=== PATIENT | female | born 1995 ===

== ENCOUNTER 2019-12-14 08:20 | Inpatient (IN) | payer BC, OTHER ==
[2019-12-14] MEDS ORDERED: Misoprostol 200 MCG Tab PO PRN (08:28)
[2019-12-14] MEDS ORDERED: Terbutaline 1 MG/ML SDV SUBCUT PRN (08:28)
[2019-12-14] MEDS ORDERED: Ondansetron 4 MG/2 ML SDV IVPUSH PRN ×2 (08:28→21:03)
[2019-12-14] MEDS ORDERED: Methylergonovine 0.2 MG/1 ML Amp IM PRN (08:28)
[2019-12-14] MEDS ORDERED: Sodium Chloride 0.9% 2.5 ML Syringe FLUSH PRN (08:28)
[2019-12-14] MEDS ORDERED: Lidocaine 1% 50 ML MDV INJECT PRN (08:28)
[2019-12-14] MEDS ORDERED: Sodium Chloride 0.9% 10 ML Syringe FLUSH PRN (08:28)
[2019-12-14] MEDS ORDERED: Water For Irrigation,Sterile 1,000 ML Container IRR PRN (08:28)
[2019-12-14] MEDS ORDERED: Tranexamic Acid 1,000 MG in Sodium Chloride 0.9% 100 ML IV PRN (08:28)
[2019-12-14] MEDS ORDERED: Nalbuphine 10 MG/1 ML Vial IVPUSH PRN (08:28)
[2019-12-14] MEDS ORDERED: Sodium Chloride 0.9% 10 ML SDV IV PRN (08:28)
[2019-12-14] MEDS ORDERED: Carboprost Tromethamine 250 MCG/1 ML Amp IM PRN (08:28)
[2019-12-14] MEDS ORDERED: Lactated Ringers 1,000 ML IV SCH (08:30)
[2019-12-14] MEDS ORDERED: Oxytocin/0.9 % Sodium Chloride 30 UNIT/500 ML BAG IV SCH ×2 (08:30)
[2019-12-14] MEDS ORDERED: Misoprostol 25 MCG (1/4 of 100 MCG) Tab VAG PRN ×2 (09:00→13:00)
[2019-12-14] MEDS ORDERED: Misoprostol 25 MCG (1/4 of 100 MCG) Tab PO SCH (09:00)
--- NOTE | 2019-12-14 15:27 | PCM.LDHP ---
L&D History of Present Illness - General Date of Service: 12/14/19 Admit Problem/Dx: Patient Status Order with Admit Dx/Problem 12/14/19 08:28 Patient Status [ADT] Routine Admission Diagnosis/Problem Admission Diagnosis/Problem 12/14/19 15:23 24yo EDC 12/31/2019 37 4/7wks TWINS, A+, RI, GBS neg. 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: Social & Family History - Family History Family Medical History: Noncontributory Endocrine/Metabolic: Reports: Diabetes, type II H&P Review of Systems - Review of Systems: Review Of Systems: See Below General: Reports: No Symptoms HEENT: Reports: No Symptoms Pulmonary: Reports: No Symptoms Cardiovascular: Reports: No Symptoms Gastrointestinal: Reports: No Symptoms Genitourinary: Reports: No Symptoms Musculoskeletal: Reports: No Symptoms Skin: Reports: No Symptoms Psychiatric: Reports: No Symptoms Neurological: Reports: No Symptoms Hematologic/Lymphatic: Reports: No Symptoms Immunologic: Reports: No Symptoms L&D Exam - Exam Exam: See Below - Vital Signs Weight: 94.347 kg - OB Specific Contraction Intensity: Moderate to Strong Movement: Active Heart Tones: Present Heart Tones per Min: 130 Heart Rate (FHR) Variability: Moderate (6-25 bmp) Presentation: Vertex Estimated Weight: 3200 - Vargas Score Vargas Score Cervix Position: Anterior Vargas Score Consistency: Soft Vargas Score Effacement: 51-70% Vargas Score Dilation: 3-4 cm Vargas Score 's Station: -2 Vargas Score Total: 9 - Exam General: Alert, Oriented HEENT: Conjunctiva Clear, Hearing Intact Lungs: Normal Respiratory Effort GI/Abdominal Exam: Soft, Non-Tender Rectal Exam: Deferred Genitourinary: Normal external exam, Normal bimanual exam, Cervical dilitation. No: Cervical fluid, Vaginal bleeding Back Exam: Normal Inspection, Full Range of Motion Extremities: Normal Inspection, Normal Range of Motion, Non-Tender, No Pedal Edema Skin: Warm, Dry, Intact Neurological: Cranial Nerves Intact, Strength Equal Bilateral, Normal Gait, Normal Speech, Normal Tone, Sensation Intact Psychiatric: Alert, Normal Affect, Normal Mood - Patient Data Lab Results Last 24 hrs: Laboratory Results - last 24 hr 12/14/19 12/14/19 Range/Units 09:00 09:00 WBC 11.23 H (4.0-11.0) K/uL RBC 3.92 L (4.30-5.90) M/uL Hgb 9.8 L (12.0-16.0) g/dL Hct 31.3 L (36.0-46.0) % MCV 79.8 L (80.0-98.0) fL MCH 25.0 L (27.0-32.0) pg MCHC 31.3 (31.0-37.0) g/dL RDW Std Deviation 45.2 (28.0-62.0) fl RDW Coeff of Donte 16 H (11.0-15.0) % Plt Count 205 (150-400) K/uL MPV 10.40 (7.40-12.00) fL Nucleated RBC % 0.0 /100WBC Nucleated RBCs # 0 K/uL Blood Type A POSITIVE Antibody Screen NEGATIVE Result Diagrams: 12/14/19 09:00 - Problem List (1) Dichorionic diamniotic twin in third trimester SNOMED Code(s): 828916099 ICD Code: O30.043 - TWIN , DICHORIONIC/DIAMNIOTIC, THIRD TRIMESTER Status: Acute Priority: High Current Visit: Yes Problem List Initiated/Reviewed/Updated: Yes Orders Last 24hrs: Active Orders 24 hr Category Date Time Status Patient Status [ADT] Routine ADT 12/14/19 08:28 Active Bedrest Bathroom Privileges [RC] ASDIRECTED Care 12/14/19 08:28 Active Communication Order [RC] ASDIRECTED Care 12/14/19 08:28 Active Communication Order [RC] ASDIRECTED Care 12/14/19 08:28 Active Heart Tones [RC] CONTINUOUS Care 12/14/19 08:28 Active Non Stress Test [RC] PER UNIT ROUTINE Care 12/14/19 08:28 Active May Shower [RC] ASDIRECTED Care 12/14/19 08:28 Active Notify Provider [RC] PRN Care 12/14/19 08:28 Active Notify Provider [RC] PRN Care 12/14/19 08:28 Active Notify Provider [RC] STAT Care 12/14/19 08:28 Active Oxygen Therapy [RC] ASDIRECTED Care 12/14/19 08:28 Active Up ad Estephania [RC] ASDIRECTED Care 12/14/19 08:28 Active Vaginal Exam [RC] PRN Care 12/14/19 08:28 Active Vaginal Exam [RC] PRN Care 12/14/19 08:28 Active Vital Signs [RC] PER UNIT ROUTINE Care 12/14/19 08:28 Active Vital Signs [RC] PER UNIT ROUTINE Care 12/14/19 08:28 Active Regular Diet [DIET] Diet 12/14/19 Lunch Active RPR (SYPHILIS SERO) W/ RFLX [REF] Routine Lab 12/14/19 09:00 Received Carboprost Tromethamine [Hemabate DS] Med 12/14/19 08:28 Active 250 mcg IM ASDIRECTED PRN Lactated Ringers [Ringers, Lactated] 1,000 ml Med 12/14/19 08:30 Active IV ASDIRECTED Lidocaine 1% [Xylocaine 1%] Med 12/14/19 08:28 Active 50 ml INJECT ONETIME PRN Methylergonovine [Methergine] Med 12/14/19 08:28 Active 0.2 mg IM ASDIRECTED PRN Nalbuphine [Nubain] Med 12/14/19 08:28 Active 10 mg IVPUSH Q1H PRN Ondansetron [Zofran] Med 12/14/19 08:28 Active 4 mg IVPUSH Q4H PRN Oxytocin/0.9 % Sodium Chloride [Oxytocin 30 Unit/500 ML Med 12/14/19 08:30 Active -NS] 30 unit in 500 ml IV TITRATE Oxytocin/0.9 % Sodium Chloride [Oxytocin 30 Unit/500 ML Med 12/14/19 08:30 Active -NS] 30 unit in 500 ml IV TITRATE Sodium Chloride 0.9% [Normal Saline] Med 12/14/19 08:28 Active 10 ml IV ASDIRECTED PRN Sodium Chloride 0.9% [Saline Flush] Med 12/14/19 08:28 Active 10 ml FLUSH ASDIRECTED PRN Sodium Chloride 0.9% [Saline Flush] Med 12/14/19 08:28 Active 2.5 ml FLUSH ASDIRECTED PRN Terbutaline [Brethine] Med 12/14/19 08:28 Active 0.25 mg SUBCUT ASDIRECTED PRN Tranexamic Acid [Cyklokapron] 1,000 mg Med 12/14/19 08:28 Active Sodium Chloride 0.9% [Normal Saline] 100 ml IV ONETIME Water For Irrigation,Sterile [Sterile Water for Med 12/14/19 08:28 Active Irrigation] 1,000 ml IRR ASDIRECTED PRN miSOPROStoL [Cytotec] Med 12/14/19 08:28 Active 200 mcg PO ONETIME PRN miSOPROStoL [Cytotec] Med 12/14/19 09:00 Active 25 mcg PO Q4H miSOPROStoL [Cytotec] Med 12/14/19 09:00 Active 25 mcg VAG ONETIME PRN miSOPROStoL [Cytotec] Med 12/14/19 13:00 Active 25 mcg VAG Q4H PRN Scalp Electrode [WOMSER] Per Unit Routine Oth 12/14/19 08:28 Ordered Medication Administration Instruction [OM.PC] Q3H Oth 12/14/19 08:30 Ordered Peripheral IV Insertion Adult [OM.PC] Routine Oth 12/14/19 08:28 Ordered Resuscitation Status Routine Resus Stat 12/14/19 08:28 Ordered Medication Orders Carboprost Tromethamine (Hemabate Ds) 250 mcg IM ASDIRECTED PRN PRN Reason: Post Hemorrhage Lactated Ringer's (Ringers, Lactated) 1,000 mls @ 150 mls/hr IV ASDIRECTED KIANA Oxytocin/Sodium Chloride (Oxytocin 30 Unit/500 Ml-Ns) 30 unit in 500 mls @ 500 mls/hr IV TITRATE KIANA Oxytocin/Sodium Chloride (Oxytocin 30 Unit/500 Ml-Ns) 30 unit in 500 mls @ 2 mls/hr IV TITRATE KIANA; Protocol Tranexamic Acid 1,000 mg/ (Sodium Chloride) 110 mls @ 660 mls/hr IV ONETIME PRN PRN Reason: Bleeding Lidocaine HCl (Xylocaine 1%) 50 ml INJECT ONETIME PRN PRN Reason: Laceration repair Methylergonovine Maleate (Methergine) 0.2 mg IM ASDIRECTED PRN PRN Reason: Post Hemorrhage Misoprostol (Cytotec) 200 mcg PO ONETIME PRN PRN Reason: Post Hemorrhage Misoprostol (Cytotec) 25 mcg VAG ONETIME PRN PRN Reason: Cervical Ripening Last Admin: 12/14/19 09:15 Dose: 25 mcg Misoprostol (Cytotec) 25 mcg VAG Q4H PRN PRN Reason: Cervical Ripening Misoprostol (Cytotec) 25 mcg PO Q4H KIANA Last Admin: 12/14/19 09:15 Dose: 25 mcg Nalbuphine HCl (Nubain) 10 mg IVPUSH Q1H PRN PRN Reason: Pain (severe 7-10) Ondansetron HCl (Zofran) 4 mg IVPUSH Q4H PRN PRN Reason: Nausea/Vomiting Sodium Chloride (Saline Flush) 10 ml FLUSH ASDIRECTED PRN PRN Reason: Keep Vein Open Sodium Chloride (Saline Flush) 2.5 ml FLUSH ASDIRECTED PRN PRN Reason: Keep Vein Open Sodium Chloride (Normal Saline) 10 ml IV ASDIRECTED PRN PRN Reason: IV Use Sterile Water (Sterile Water For Irrigation) 1,000 ml IRR ASDIRECTED PRN PRN Reason: delivery Terbutaline Sulfate (Brethine) 0.25 mg SUBCUT ASDIRECTED PRN PRN Reason: Tacysystole Assessment/Plan Comment:: IOL TWINS A: 24yo EDC 12/31/2019 37 4/7wks TWINS, A+, RI, GBS neg. IOL for Twins P: Admit, cytotec to pitocin, epidural prn, anticipate , Dr Marte updated.
[2019-12-14] MEDS ORDERED: Ropivacaine HCl/PF 100 ML ONE (16:05)
[2019-12-14] MEDS ORDERED: fentaNYL 100 MCG/2 ML SDV ONE ×2 (16:05→19:37)
[2019-12-14] MEDS ORDERED: Ropivacaine 0.2% PF 2 MG/ML 20 ML SDV ONE (16:05)
[2019-12-14] MEDS ORDERED: ePHEDrine 50 MG/ML SDV ONE (17:00)
[2019-12-14] MEDS ORDERED: Sodium Chloride 0.9% 0 ML ONE (17:01)
--- NOTE | 2019-12-14 17:07 | PCM.PREANE ---
Preanesthetic Assessment - Procedure Proposed Procedure: MARISELA - Anesthesia/Transfusion/Family Hx Anesthesia History: Prior Anesthesia Without Reaction Family History of Anesthesia Reaction: No Transfusion History: No Prior Transfusion(s) Intubation History: Unknown - Review of Systems General: No Symptoms Pulmonary: No Symptoms Cardiovascular: No Symptoms Gastrointestinal: No Symptoms Neurological: No Symptoms - Physical Assessment NPO Status Date: 12/14/19 NPO Status Time: 16:00 (lIQUIDS) Height: 1.68 m Weight: 94.347 kg ASA Class: 2 Mental Status: Alert & Oriented x3 Airway Class: Mallampati = 2 Dentition: Reports: Normal Dentition Thyro-Mental Finger Breadths: 3 Mouth Opening Finger Breadths: 3 - Lab Values: Laboratory Last Values WBC 11.23 K/uL (4.0-11.0) H 12/14/19 09:00 RBC 3.92 M/uL (4.30-5.90) L 12/14/19 09:00 Hgb 9.8 g/dL (12.0-16.0) L 12/14/19 09:00 Hct 31.3 % (36.0-46.0) L 12/14/19 09:00 MCV 79.8 fL (80.0-98.0) L 12/14/19 09:00 MCH 25.0 pg (27.0-32.0) L 12/14/19 09:00 MCHC 31.3 g/dL (31.0-37.0) 12/14/19 09:00 RDW Std Deviation 45.2 fl (28.0-62.0) 12/14/19 09:00 RDW Coeff of Donte 16 % (11.0-15.0) H 12/14/19 09:00 Plt Count 205 K/uL (150-400) 12/14/19 09:00 MPV 10.40 fL (7.40-12.00) 12/14/19 09:00 Nucleated RBC % 0.0 /100WBC 12/14/19 09:00 Nucleated RBCs # 0 K/uL 12/14/19 09:00 Blood Type A POSITIVE 12/14/19 09:00 Antibody Screen NEGATIVE 12/14/19 09:00 - Allergies Allergies/Adverse Reactions: Allergies Allergy/AdvReac Type Severity Reaction Status Date / Time No Known Allergies Allergy Verified 12/14/19 08:28 - Blood Blood Available: No Product(s) Available: None - Anesthesia Plan Pre-Op Medication Ordered: None - Acknowledgements Anesthesia Type Planned: Epidural Pt an Appropriate Candidate for the Planned Anesthesia: Yes Alternatives and Risks of Anesthesia Discussed w Pt/Guardian: Yes Pt/Guardian Understands and Agrees with Anesthesia Plan: Yes Additional Comments: , 37+4 weeks. Twins. Previous epidural. Discussed, ? answered, permit signed. Acceptable candidate. 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 MEDS Home Medications: Home Meds Pnv No.95/Ferrous Fum/Folic AC [ Tablet] 1 tab PO DAILY 11/19/19 [ History] - CURRENT (IN HOUSE) MEDS Current Meds: Current Medications Carboprost Tromethamine (Hemabate Ds) 250 mcg IM ASDIRECTED PRN PRN Reason: Post Hemorrhage Lactated Ringer's (Ringers, Lactated) 1,000 mls @ 150 mls/hr IV ASDIRECTED KIANA Last Admin: 12/14/19 15:27 Dose: 999 mls/hr Oxytocin/Sodium Chloride (Oxytocin 30 Unit/500 Ml-Ns) 30 unit in 500 mls @ 500 mls/hr IV TITRATE KIANA Oxytocin/Sodium Chloride (Oxytocin 30 Unit/500 Ml-Ns) 30 unit in 500 mls @ 2 mls/hr IV TITRATE [facility]; Protocol Tranexamic Acid 1,000 mg/ (Sodium Chloride) 110 mls @ 660 mls/hr IV ONETIME PRN PRN Reason: Bleeding Lidocaine HCl (Xylocaine 1%) 50 ml INJECT ONETIME PRN PRN Reason: Laceration repair Methylergonovine Maleate (Methergine) 0.2 mg IM ASDIRECTED PRN PRN Reason: Post Hemorrhage Misoprostol (Cytotec) 200 mcg PO ONETIME PRN PRN Reason: Post Hemorrhage Misoprostol (Cytotec) 25 mcg VAG ONETIME PRN PRN Reason: Cervical Ripening Last Admin: 12/14/19 09:15 Dose: 25 mcg Misoprostol (Cytotec) 25 mcg VAG Q4H PRN PRN Reason: Cervical Ripening Misoprostol (Cytotec) 25 mcg PO Q4H KIANA Last Admin: 12/14/19 09:15 Dose: 25 mcg Nalbuphine HCl (Nubain) 10 mg IVPUSH Q1H PRN PRN Reason: Pain (severe 7-10) Ondansetron HCl (Zofran) 4 mg IVPUSH Q4H PRN PRN Reason: Nausea/Vomiting Sodium Chloride (Saline Flush) 10 ml FLUSH ASDIRECTED PRN PRN Reason: Keep Vein Open Sodium Chloride (Saline Flush) 2.5 ml FLUSH ASDIRECTED PRN PRN Reason: Keep Vein Open Sodium Chloride (Normal Saline) 10 ml IV ASDIRECTED PRN PRN Reason: IV Use Sterile Water (Sterile Water For Irrigation) 1,000 ml IRR ASDIRECTED PRN PRN Reason: delivery Terbutaline Sulfate (Brethine) 0.25 mg SUBCUT ASDIRECTED PRN PRN Reason: Tacysystole Discontinued Medications Ephedrine Sulfate (Ephedrine Sulfate) Confirm Administered Dose 100 mg .ROUTE .STK-MED ONE Stop: 12/14/19 17:01 Fentanyl (Sublimaze) Confirm Administered Dose 100 mcg .ROUTE .STK-MED ONE Stop: 12/14/19 16:06 Ropivacaine (Naropin 0.2%) Confirm Administered Dose 100 mls @ as directed .ROUTE .STK-MED ONE Stop: 12/14/19 16:06 Sodium Chloride (Normal Saline) Confirm Administered Dose 20 mls @ as directed .ROUTE .STK-MED ONE Stop: 12/14/19 17:02 Ropivacaine (Naropin 0.2%) Confirm Administered Dose 20 ml .ROUTE .STK-MED ONE Stop: 12/14/19 16:06
--- NOTE | 2019-12-14 17:16 | PCM.SN ---
- Free Text/Narrative Note: Epidural without issues. Prep with Chloroprep Space L3-4. Local 4ml 1% lidocaine. Space on 3rd pass with saline/air. Reconfirmed with 3ml saline. Catheter to 8cm without issues. Occlusive drsg. Test with 3ml 1.5% lido with 1:200K epi. TEST NEGATIVE. Bolus with 0.2% Naropin + Fentanyl 100mcg over 10 minutes. Pain post /10 from 05/05. VSS Infusion started 30 minutes post bolus. 8ml/hr with 4ml/q15 bolus option. Tolerated well. TeleHealth - TeleHealth Patient Service Facility: [facility]: [facility] Informed Consent: Telemedicine Audio/Visual Informed Consent: The risks, benefits, and alternatives to the telehealth visit were explained to the patient and the patient consented to this modality of care. The telehealth visit was carried out via a secure, web-based conferencing system. This telemedicine service was a real-time, two-way interactive video and communication between the patient and the provider. All the parties involved were identified and approved by the patient prior to the visit. Any physical exam was assisted by the patient. Unless noted otherwise, the provider was located at their usual clinic location , and the patient was at their place of residence. Patient identity was confirmed by having the patient state their name and date of . All communications with the patient (verbal, audiovisual, and written) were documented in the patients medical record per documentation standards.
[2019-12-14] MEDS ORDERED: Bupivacaine 0.5% 10 ML SDV ONE (19:37)
--- NOTE | 2019-12-14 20:11 | PCM.SN ---
- Free Text/Narrative Note: 19:38 Requested for increased pain. 5 ml Marcaine 0.5% + 100mcg fentanyl. Dilated 7-8cm. Active labor. Good relief for brief period. Dilated to complete. Increasing discomfort. Transferred to OR for delivery of twins. Anesthesia standby. 19:58-20:48. Tolerated procedure well. Viable girls. Epidural catheter pulled with tip intact. No issues post. TeleHealth - TeleHealth Patient Service Facility: [facility]: [facility] Informed Consent: Telemedicine Audio/Visual Informed Consent: The risks, benefits, and alternatives to the telehealth visit were explained to the patient and the patient consented to this modality of care. The telehealth visit was carried out via a secure, web-based conferencing system. This telemedicine service was a real-time, two-way interactive video and communication between the patient and the provider. All the parties involved were identified and approved by the patient prior to the visit. Any physical exam was assisted by the patient. Unless noted otherwise, the provider was located at their usual clinic location , and the patient was at their place of residence. Patient identity was confirmed by having the patient state their name and date of . All communications with the patient (verbal, audiovisual, and written) were documented in the patients medical record per documentation standards.
[2019-12-14] MEDS ORDERED: Benzocaine/Menthol 20%-0.5% Spray 78 GM Cannister TOP PRN (21:00)
[2019-12-14] MEDS ORDERED: Witch Hazel Medicated Pads 40/Jar TOP PRN (21:00)
[2019-12-14] MEDS ORDERED: Lanolin 100% Cream 7 GM Tube TOP PRN (21:00)
[2019-12-14] MEDS ORDERED: Bisacodyl 10 MG Supp RECTAL PRN (21:00)
[2019-12-14] MEDS ORDERED: Docusate Sodium 100 MG Cap PO PRN (21:00)
[2019-12-14] MEDS ORDERED: oxyCODONE 5 MG Tab PO PRN (21:00)
[2019-12-14] MEDS ORDERED: Acetaminophen 500 MG Tab PO PRN (21:00)
[2019-12-14] MEDS ORDERED: Ibuprofen 400 MG Tab PO PRN (21:00)
[2019-12-14] MEDS ORDERED: Ibuprofen 800 MG Tab ONE (21:12)
[2019-12-14] MEDS ORDERED: Acetaminophen 500 MG Tab ONE (21:12)
[2019-12-14] MEDS: Ibuprofen 800 MG Tab PO PRN (21:15)
[2019-12-14] MEDS: Acetaminophen 500 MG Tab PO PRN (21:15)
--- NOTE | 2019-12-14 21:19 | PCM48HPAN ---
Post Anesthesia Note - EVALUATION WITHIN 48HRS OF ANESTHETIC Vital Signs in Normal Range: Yes Patient Participated in Evaluation: Yes Respiratory Function Stable: Yes Airway Patent: Yes Cardiovascular Function Stable: Yes Hydration Status Stable: Yes Pain Control Satisfactory: Yes Nausea and Vomiting Control Satisfactory: Yes Mental Status Recovered: Yes - COMMENTS/OBSERVATIONS Free Text/Narrative:: Did well. No problems post.
--- NOTE | 2019-12-14 21:42 | PCM.DEL ---
L & D Note - General Info Date of Service: 12/14/19 Mother's Due Date: 12/31/19 - Delivery Note Labor: Augmented by ARM Cervical Ripening Method: Misoprostil Delivery Outcome: Livebirth Delivery Method: Spontaneous Vaginal Delivery-Single Infant Delivery Mode: Spontaneous Presentation: Vertex Nuchal Cord: None Anesthesia Type: Epidural Amniotic Fluid Description: Clear Episiotomy Type: None Laceration: None Placenta: Intact, Spontaneous Cord: 3 Vessels Estimated Blood Loss: 150 Resuscitation Needed: No Score 1 min: 8 Score 5 min: 9 Second Stage Interventions: Reports: Pushing, Pulls Own Legs Back Delivery Comments (Free Text/Narrative):: of twins. Baby A delivered with good pushing, Head delivered, shoulders and body followed easily. Very short cord, cord clamped and cut. Infant to mothers abd spont cry. RN at for support. APGARS 8/9, Wt: 5lb 12oz. Dr Marte ultrasound noted baby B cephalic presentation. SROM clear fluid, Baby delivered vacuum assisted due to FHT in the 60's. Infant delivered OP. Infant with spont cry. Cord clamped and cut. APGARS 7/9, Wt: 6lb 2oz. Cord blood collected. Pitocin to IVF. Inspection noted intact perineum. EBL 150cc. Stable. Induction Criteria - Vargas Score Vargas Score Dilation: 1-2 cm Vargas Score Effacement: 60-70% Vargas Score 's Station: -2 Vargas Score Consistency: Soft Vargas Score Cervix Position: Midposition Vargas Score Total: 7 Vargas Score Presenting Part: Reports: Cephalic - Induction Medical Indication: Twins Estimated Pelvis: Reports: Adequate Reassuring Monitoring Strip: Yes Absence of Tachy Systole: Yes - General Info Date of Service: 12/14/19 Admission Dx/Problem (Free Text): Patient Status Order with Admit Dx/Problem 12/14/19 08:28 Patient Status [ADT] Routine Admission Diagnosis/Problem Admission Diagnosis/Problem 12/14/19 15:23 24yo EDC 12/31/2019 37 4/7wks TWINS, A+, RI, GBS neg. IOL for Twins Functional Status: Reports: Pain Controlled - Review of Systems General: Reports: No Symptoms HEENT: Reports: No Symptoms Pulmonary: Reports: No Symptoms Cardiovascular: Reports: No Symptoms Gastrointestinal: Reports: No Symptoms Genitourinary: Reports: No Symptoms Musculoskeletal: Reports: No Symptoms Skin: Reports: No Symptoms Neurological: Reports: No Symptoms Psychiatric: Reports: No Symptoms - Patient Data Weight - Most Recent: 94.347 kg Lab Results Last 24 Hours: Laboratory Results - last 24 hr 12/14/19 12/14/19 Range/Units 09:00 09:00 WBC 11.23 H (4.0-11.0) K/uL RBC 3.92 L (4.30-5.90) M/uL Hgb 9.8 L (12.0-16.0) g/dL Hct 31.3 L (36.0-46.0) % MCV 79.8 L (80.0-98.0) fL MCH 25.0 L (27.0-32.0) pg MCHC 31.3 (31.0-37.0) g/dL RDW Std Deviation 45.2 (28.0-62.0) fl RDW Coeff of Donte 16 H (11.0-15.0) % Plt Count 205 (150-400) K/uL MPV 10.40 (7.40-12.00) fL Nucleated RBC % 0.0 /100WBC Nucleated RBCs # 0 K/uL Blood Type A POSITIVE Antibody Screen NEGATIVE Med Orders - Current: Current Medications Acetaminophen (Tylenol Extra Strength) 500 mg PO Q4H PRN PRN Reason: Pain Acetaminophen (Tylenol Extra Strength) 1,000 mg PO Q4H PRN PRN Reason: Pain Last Admin: 12/14/19 21:15 Dose: 1,000 mg Benzocaine/Menthol (Dermoplast Pain Relief 20%-0.5% [place]) 78 gm TOP ASDIRECTED PRN PRN Reason: Perineal Comfort Measure Bisacodyl (Dulcolax) 10 mg RECTAL ONETIME PRN PRN Reason: Constipation Carboprost Tromethamine (Hemabate Ds) 250 mcg IM ASDIRECTED PRN PRN Reason: Post Hemorrhage Docusate Sodium (Colace) 100 mg PO BID PRN PRN Reason: Constipation Emollient Ointment (Lansinoh Hpa) 0 gm TOP ASDIRECTED PRN PRN Reason: Sore Nipples Lactated Ringer's (Ringers, Lactated) 1,000 mls @ 150 mls/hr IV ASDIRECTED [facility] Last Infusion: 12/14/19 19:45 Dose: Infused Oxytocin/Sodium Chloride (Oxytocin 30 Unit/500 Ml-Ns) 30 unit in 500 mls @ 500 mls/hr IV TITRATE [facility] Last Admin: 12/14/19 21:17 Dose: 500 mls/hr Oxytocin/Sodium Chloride (Oxytocin 30 Unit/500 Ml-Ns) 30 unit in 500 mls @ 2 mls/hr IV TITRATE [facility]; Protocol Tranexamic Acid 1,000 mg/ (Sodium Chloride) 110 mls @ 660 mls/hr IV ONETIME PRN PRN Reason: Bleeding Ibuprofen (Motrin) 400 mg PO Q4H PRN PRN Reason: Pain Ibuprofen (Motrin) 800 mg PO Q6H PRN PRN Reason: Pain Last Admin: 12/14/19 21:15 Dose: 800 mg Lidocaine HCl (Xylocaine 1%) 50 ml INJECT ONETIME PRN PRN Reason: Laceration repair Methylergonovine Maleate (Methergine) 0.2 mg IM ASDIRECTED PRN PRN Reason: Post Hemorrhage Misoprostol (Cytotec) 200 mcg PO ONETIME PRN PRN Reason: Post Hemorrhage Misoprostol (Cytotec) 25 mcg VAG ONETIME PRN PRN Reason: Cervical Ripening Last Admin: 12/14/19 09:15 Dose: 25 mcg Misoprostol (Cytotec) 25 mcg VAG Q4H PRN PRN Reason: Cervical Ripening Misoprostol (Cytotec) 25 mcg PO Q4H [facility] Last Admin: 12/14/19 09:15 Dose: 25 mcg Nalbuphine HCl (Nubain) 10 mg IVPUSH Q1H PRN PRN Reason: Pain (severe 7-10) Ondansetron HCl (Zofran) 4 mg IVPUSH Q6H PRN PRN Reason: Nausea/Vomiting Oxycodone HCl (Oxycodone) 5 mg PO Q2H PRN PRN Reason: Pain Sodium Chloride (Saline Flush) 10 ml FLUSH ASDIRECTED PRN PRN Reason: Keep Vein Open Sodium Chloride (Saline Flush) 2.5 ml FLUSH ASDIRECTED PRN PRN Reason: Keep Vein Open Sodium Chloride (Normal Saline) 10 ml IV ASDIRECTED PRN PRN Reason: IV Use Sterile Water (Sterile Water For Irrigation) 1,000 ml IRR ASDIRECTED PRN PRN Reason: delivery Terbutaline Sulfate (Brethine) 0.25 mg SUBCUT ASDIRECTED PRN PRN Reason: Tacysystole Witch [place] (Tucks) 1 pad TOP ASDIRECTED PRN PRN Reason: comfort care Discontinued Medications Acetaminophen (Tylenol Extra Strength) Confirm Administered Dose 1,000 mg .ROUTE .STK-MED ONE Stop: 12/14/19 21:13 Bupivacaine HCl (Sensorcaine-Mpf 0.5%) Confirm Administered Dose 10 ml .ROUTE .STK-MED ONE Stop: 12/14/19 19:38 Ephedrine Sulfate (Ephedrine Sulfate) Confirm Administered Dose 100 mg .ROUTE .STK-MED ONE Stop: 12/14/19 17:01 Fentanyl (Sublimaze) Confirm Administered Dose 100 mcg .ROUTE .STK-MED ONE Stop: 12/14/19 16:06 Fentanyl (Sublimaze) Confirm Administered Dose 100 mcg .ROUTE .STK-MED ONE Stop: 12/14/19 19:38 Ropivacaine (Naropin 0.2%) Confirm Administered Dose 100 mls @ as directed .ROUTE .STK-MED ONE Stop: 12/14/19 16:06 Sodium Chloride (Normal Saline) Confirm Administered Dose 20 mls @ as directed .ROUTE .STK-MED ONE Stop: 12/14/19 17:02 Ibuprofen (Motrin) Confirm Administered Dose 800 mg .ROUTE .STK-MED ONE Stop: 12/14/19 21:13 Ondansetron HCl (Zofran) 4 mg IVPUSH Q4H PRN PRN Reason: Nausea/Vomiting Ropivacaine (Naropin 0.2%) Confirm Administered Dose 20 ml .ROUTE .STK-MED ONE Stop: 12/14/19 16:06 - Exam General: Alert, Oriented, Cooperative, No Acute Distress Lungs: Normal Respiratory Effort GI/Abdominal Exam: Soft, Non-Tender (Female) Exam: Normal External Exam, Normal Bimanual Exam, Vaginal Bleeding. No: Vaginal Lesions, Vaginal Tears Back Exam: Normal Inspection, Full Range of Motion Extremities: Normal Inspection, Normal Range of Motion, Non-Tender, No Pedal Edema Skin: Warm, Dry, Intact Neurological: No New Focal Deficit, Normal Speech, Normal Tone, Strength Equal Bilateral, Sensation Intact Psy/Mental Status: Alert, Normal Affect, Normal Mood - Problem List & Annotations (1) Dichorionic diamniotic twin in third trimester SNOMED Code(s): 312503253 Code(s): O30.043 - TWIN , DICHORIONIC/DIAMNIOTIC, THIRD TRIMESTER Status: Acute Priority: High Current Visit: Yes (2) Twin SNOMED Code(s): 63609221 Code(s): Z37.9 - OUTCOME OF DELIVERY, UNSPECIFIED Status: Acute Priority : High Current Visit: Yes - Problem List Review Problem List Initiated/Reviewed/Updated: Yes - Plan Plan:: IOL TWINS A: 24yo EDC 12/31/2019 37 4/7wks TWINS, A+, RI, GBS neg. IOL for Twins P: Admit, cytotec to pitocin, epidural prn, anticipate , Dr Marte updated. Delivery A: twins, A: APGARS 8/9, Wt: 5lb 12oz, B: APGARS 7/9, Wt 6lb 2oz. Intact perineum, EBL 150cc. Stable P: Routine pp plan of care.
--- NOTE | 2019-12-15 08:47 | PCM.PNPP ---
- General Info Date of Service: 12/15/19 Admission Dx/Problem (Free Text): Patient Status Order with Admit Dx/Problem 12/14/19 08:28 Patient Status [ADT] Routine Admission Diagnosis/Problem Admission Diagnosis/Problem 12/14/19 15:23 24yo EDC 12/31/2019 37 4/7wks TWINS, A+, RI, GBS neg. IOL for Twins Functional Status: Reports: Pain Controlled, Tolerating Diet, Ambulating, Urinating - Review of Systems General: Reports: No Symptoms HEENT: Reports: No Symptoms Pulmonary: Reports: No Symptoms Cardiovascular: Reports: No Symptoms Gastrointestinal: Reports: No Symptoms Genitourinary: Reports: No Symptoms Musculoskeletal: Reports: No Symptoms Skin: Reports: No Symptoms Neurological: Reports: No Symptoms Psychiatric: Reports: No Symptoms - General Info Date of Service: 12/15/19 - Patient Data Vital Signs - Most Recent: Last Vital Signs Temp 36.1 C 12/15/19 05:10 Pulse 78 12/15/19 05:10 Resp 17 12/15/19 05:10 BP 113/81 12/15/19 05:10 Pulse Ox 97 12/15/19 05:10 Weight - Most Recent: 94.347 kg Lab Results - Last 24 Hours: Laboratory Results - last 24 hr 12/14/19 12/14/19 12/15/19 Range/Units 09:00 09:00 05:37 WBC 11.23 H (4.0-11.0) K/uL RBC 3.92 L (4.30-5.90) M/uL Hgb 9.8 L 9.3 L (12.0-16.0) g/dL Hct 31.3 L 29.2 L (36.0-46.0) % MCV 79.8 L (80.0-98.0) fL MCH 25.0 L (27.0-32.0) pg MCHC 31.3 (31.0-37.0) g/dL RDW Std Deviation 45.2 (28.0-62.0) fl RDW Coeff of Donte 16 H (11.0-15.0) % Plt Count 205 (150-400) K/uL MPV 10.40 (7.40-12.00) fL Nucleated RBC % 0.0 /100WBC Nucleated RBCs # 0 K/uL Blood Type A POSITIVE Antibody Screen NEGATIVE Med Orders - Current: Current Medications Acetaminophen (Tylenol Extra Strength) 500 mg PO Q4H PRN PRN Reason: Pain Acetaminophen (Tylenol Extra Strength) 1,000 mg PO Q4H PRN PRN Reason: Pain Last Admin: 12/14/19 21:15 Dose: 1,000 mg Benzocaine/Menthol (Dermoplast Pain Relief 20%-0.5% [place]) 78 gm TOP ASDIRECTED PRN PRN Reason: Perineal Comfort Measure Last Admin: 12/15/19 01:52 Dose: 78 gm Bisacodyl (Dulcolax) 10 mg RECTAL ONETIME PRN PRN Reason: Constipation Docusate Sodium (Colace) 100 mg PO BID PRN PRN Reason: Constipation Emollient Ointment (Lansinoh Hpa) 0 gm TOP ASDIRECTED PRN PRN Reason: Sore Nipples Ibuprofen (Motrin) 400 mg PO Q4H PRN PRN Reason: Pain Ibuprofen (Motrin) 800 mg PO Q6H PRN PRN Reason: Pain Last Admin: 12/14/19 21:15 Dose: 800 mg Misoprostol (Cytotec) 25 mcg VAG Q4H PRN PRN Reason: Cervical Ripening Ondansetron HCl (Zofran) 4 mg IVPUSH Q6H PRN PRN Reason: Nausea/Vomiting Oxycodone HCl (Oxycodone) 5 mg PO Q2H PRN PRN Reason: Pain Witch Rivka (Tucks) 1 pad TOP ASDIRECTED PRN PRN Reason: comfort care Discontinued Medications Acetaminophen (Tylenol Extra Strength) Confirm Administered Dose 1,000 mg .ROUTE .STK-MED ONE Stop: 12/14/19 21:13 Bupivacaine HCl (Sensorcaine-Mpf 0.5%) Confirm Administered Dose 10 ml .ROUTE .STK-MED ONE Stop: 12/14/19 19:38 Carboprost Tromethamine (Hemabate Ds) 250 mcg IM ASDIRECTED PRN PRN Reason: Post Hemorrhage Ephedrine Sulfate (Ephedrine Sulfate) Confirm Administered Dose 100 mg .ROUTE .STK-MED ONE Stop: 12/14/19 17:01 Fentanyl (Sublimaze) Confirm Administered Dose 100 mcg .ROUTE .STK-MED ONE Stop: 12/14/19 16:06 Fentanyl (Sublimaze) Confirm Administered Dose 100 mcg .ROUTE .STK-MED ONE Stop: 12/14/19 19:38 Lactated Ringer's (Ringers, Lactated) 1,000 mls @ 150 mls/hr IV ASDIRECTED [facility] Last Infusion: 12/14/19 19:45 Dose: Infused Oxytocin/Sodium Chloride (Oxytocin 30 Unit/500 Ml-Ns) 30 unit in 500 mls @ 500 mls/hr IV TITRATE [facility] Last Admin: 12/14/19 21:17 Dose: 500 mls/hr Oxytocin/Sodium Chloride (Oxytocin 30 Unit/500 Ml-Ns) 30 unit in 500 mls @ 2 mls/hr IV TITRATE [facility]; Protocol Tranexamic Acid 1,000 mg/ (Sodium Chloride) 110 mls @ 660 mls/hr IV ONETIME PRN PRN Reason: Bleeding Ropivacaine (Naropin 0.2%) Confirm Administered Dose 100 mls @ as directed .ROUTE .STK-MED ONE Stop: 12/14/19 16:06 Sodium Chloride (Normal Saline) Confirm Administered Dose 20 mls @ as directed .ROUTE .STK-MED ONE Stop: 12/14/19 17:02 Ibuprofen (Motrin) Confirm Administered Dose 800 mg .ROUTE .STK-MED ONE Stop: 12/14/19 21:13 Lidocaine HCl (Xylocaine 1%) 50 ml INJECT ONETIME PRN PRN Reason: Laceration repair Methylergonovine Maleate (Methergine) 0.2 mg IM ASDIRECTED PRN PRN Reason: Post Hemorrhage Misoprostol (Cytotec) 200 mcg PO ONETIME PRN PRN Reason: Post Hemorrhage Misoprostol (Cytotec) 25 mcg VAG ONETIME PRN PRN Reason: Cervical Ripening Last Admin: 12/14/19 09:15 Dose: 25 mcg Misoprostol (Cytotec) 25 mcg PO Q4H [facility] Last Admin: 12/14/19 09:15 Dose: 25 mcg Nalbuphine HCl (Nubain) 10 mg IVPUSH Q1H PRN PRN Reason: Pain (severe 7-10) Ondansetron HCl (Zofran) 4 mg IVPUSH Q4H PRN PRN Reason: Nausea/Vomiting Ropivacaine (Naropin 0.2%) Confirm Administered Dose 20 ml .ROUTE .STK-MED ONE Stop: 12/14/19 16:06 Sodium Chloride (Saline Flush) 10 ml FLUSH ASDIRECTED PRN PRN Reason: Keep Vein Open Sodium Chloride (Saline Flush) 2.5 ml FLUSH ASDIRECTED PRN PRN Reason: Keep Vein Open Sodium Chloride (Normal Saline) 10 ml IV ASDIRECTED PRN PRN Reason: IV Use Sterile Water (Sterile Water For Irrigation) 1,000 ml IRR ASDIRECTED PRN PRN Reason: delivery Terbutaline Sulfate (Brethine) 0.25 mg SUBCUT ASDIRECTED PRN PRN Reason: Tacysystole - Infant Interaction Disposition, : Twins Interaction: Holding Infant Feeding: Bottle Fed Support Person: - Recovery Exam Fundal Tone: Firm Fundal Level: 1 Fingerbreadths Below Umbilicus Fundal Placement: Midline Lochia Amount: Small Lochia Color: Rubra/Red Perineum Description: Intact, Minimal Bruising/Swelling, Edematous Episiotomy/Laceration: None Bladder Status: Nonpalpable, Voiding - Exam General: Alert, Oriented Lungs: Clear to Auscultation, Normal Respiratory Effort Cardiovascular: Regular Rate, Regular Rhythm GI/Abdominal Exam: Soft, Non-Tender Extremities: Normal Inspection, Normal Range of Motion, Non-Tender, No Pedal Edema Skin: Warm, Dry, Intact Neurological: No New Focal Deficit, Normal Speech, Normal Tone, Strength Equal Bilateral Psy/Mental Status: Alert, Normal Affect, Normal Mood - Problem List & Annotations (1) Dichorionic diamniotic twin in third trimester SNOMED Code(s): 519854599 Code(s): O30.043 - TWIN , DICHORIONIC/DIAMNIOTIC, THIRD TRIMESTER Status: Acute Priority: High Current Visit: Yes (2) Twin SNOMED Code(s): 33691459 Code(s): Z37.9 - OUTCOME OF DELIVERY, UNSPECIFIED Status: Acute Priority : High Current Visit: Yes - Problem List Review Problem List Initiated/Reviewed/Updated: Yes - Plan Plan:: IOL TWINS A: 24yo EDC 12/31/2019 37 4/7wks TWINS, A+, RI, GBS neg. IOL for Twins P: Admit, cytotec to pitocin, epidural prn, anticipate , Dr Marte updated. Delivery A: twins, A: APGARS 8/9, Wt: 5lb 12oz, B: APGARS 7/9, Wt 6lb 2oz. Intact perineum, EBL 150cc. Stable P: Routine pp plan of care. PPD#1 A: VSS, AF, Lochia small, FF 2BU. Bottle feeding infants. Resting well with at bs. P: Continue routine pp poc
[2019-12-15] MEDS: Ibuprofen 800 MG Tab PO PRN ×2 (08:51→15:43)
[2019-12-15] MEDS: Acetaminophen 500 MG Tab PO PRN ×2 (08:52→15:42)
--- NOTE | 2019-12-16 08:42 | PCM.DCSUM1 ---
Discharge Summary - Hospital Course Free Text/Narrative:: Monisha is a 24 yo that presents today S/P vaginal delivery of Nigel twin NBFs. A pos, RI, GBS neg. Patient verbalizes readiness for discharge home today. Diagnosis: Stroke: No - Discharge Data Discharge Date: 12/16/19 Discharge Disposition: Home, Self-Care 01 Condition: Good - Referral to Home Health Primary Care Physician: PCP None - Discharge Diagnosis/Problem(s) (1) Vaginal delivery SNOMED Code(s): 191207008 ICD Code: O80 - ENCOUNTER FOR FULL-TERM UNCOMPLICATED DELIVERY Status: Acute Priority: High Current Visit: Yes (2) Twin SNOMED Code(s): 25720421 ICD Code: Z37.9 - OUTCOME OF DELIVERY, UNSPECIFIED Status: Acute Priority : High Current Visit: Yes - Patient Instructions Diet: Regular Diet as Tolerated, Drink 8-10+ Glasses/Day Activity: Apply Ice, As Tolerated, No Strenuous Activities Driving: May Drive Today Showering/Bathing: May Shower Notify Provider of: Fever, Increased Pain, Swelling and Redness, Drainage, Nausea and/or Vomiting - Discharge Plan *PRESCRIPTION DRUG MONITORING PROGRAM REVIEWED*: No *COPY OF PRESCRIPTION DRUG MONITORING REPORT IN PATIENT GILLIAN: No Prescriptions/Med Rec: Ibuprofen [Motrin] 800 mg PO Q8H PRN #90 tablet PRN Reason: Pain Home Medications: Home Meds Ibuprofen [Motrin] 800 mg PO Q8H PRN #90 tablet 12/16/19 [Rx] Oxygen Therapy Mode: Room Air Patient Handouts: Care After Vaginal Delivery Referrals: [facility] [Outside] Faina Schuler CNM [Mid-] - 01/27/20 1:30 pm - Discharge Summary/Plan Comment DC Time >30 min.: No (OK to discharge now ) - General Info Date of Service: 12/16/19 Admission Dx/Problem (Free Text: Patient Status Order with Admit Dx/Problem 12/14/19 08:28 Patient Status [ADT] Routine Admission Diagnosis/Problem Admission Diagnosis/Problem 12/14/19 15:23 24yo EDC 12/31/2019 37 4/7wks TWINS, A+, RI, GBS neg. IOL for Twins Functional Status: Reports: Pain Controlled - Review of Systems General: Reports: No Symptoms HEENT: Reports: No Symptoms Pulmonary: Reports: No Symptoms Cardiovascular: Reports: No Symptoms Gastrointestinal: Reports: No Symptoms Genitourinary: Reports: No Symptoms Musculoskeletal: Reports: No Symptoms Skin: Reports: No Symptoms Neurological: Reports: No Symptoms Psychiatric: Reports: No Symptoms - Patient Data Vitals - Most Recent: Last Vital Signs Temp 96.9 F 12/16/19 04:55 Pulse 61 12/16/19 04:55 Resp 17 12/16/19 04:55 BP 134/63 12/16/19 04:55 Pulse Ox 97 12/16/19 04:55 Weight - Most Recent: 208 lb Lab Results - Last 24 hrs: Laboratory Results - last 24 hr 12/14/19 Range/Units 09:00 RPR Non-Reac (Non-Reac) Med Orders - Current: Current Medications Acetaminophen (Tylenol Extra Strength) 500 mg PO Q4H PRN PRN Reason: Pain Acetaminophen (Tylenol Extra Strength) 1,000 mg PO Q4H PRN PRN Reason: Pain Last Admin: 12/15/19 15:42 Dose: 1,000 mg Benzocaine/Menthol (Dermoplast Pain Relief 20%-0.5% [place]) 78 gm TOP ASDIRECTED PRN PRN Reason: Perineal Comfort Measure Last Admin: 12/15/19 01:52 Dose: 78 gm Bisacodyl (Dulcolax) 10 mg RECTAL ONETIME PRN PRN Reason: Constipation Docusate Sodium (Colace) 100 mg PO BID PRN PRN Reason: Constipation Emollient Ointment (Lansinoh Hpa) 0 gm TOP ASDIRECTED PRN PRN Reason: Sore Nipples Ibuprofen (Motrin) 400 mg PO Q4H PRN PRN Reason: Pain Ibuprofen (Motrin) 800 mg PO Q6H PRN PRN Reason: Pain Last Admin: 12/15/19 15:43 Dose: 800 mg Misoprostol (Cytotec) 25 mcg VAG Q4H PRN PRN Reason: Cervical Ripening Ondansetron HCl (Zofran) 4 mg IVPUSH Q6H PRN PRN Reason: Nausea/Vomiting Oxycodone HCl (Oxycodone) 5 mg PO Q2H PRN PRN Reason: Pain Witch [place] (Tucks) 1 pad TOP ASDIRECTED PRN PRN Reason: comfort care Discontinued Medications Acetaminophen (Tylenol Extra Strength) Confirm Administered Dose 1,000 mg .ROUTE .STK-MED ONE Stop: 12/14/19 21:13 Bupivacaine HCl (Sensorcaine-Mpf 0.5%) Confirm Administered Dose 10 ml .ROUTE .STK-MED ONE Stop: 12/14/19 19:38 Carboprost Tromethamine (Hemabate Ds) 250 mcg IM ASDIRECTED PRN PRN Reason: Post Hemorrhage Ephedrine Sulfate (Ephedrine Sulfate) Confirm Administered Dose 100 mg .ROUTE .STK-MED ONE Stop: 12/14/19 17:01 Fentanyl (Sublimaze) Confirm Administered Dose 100 mcg .ROUTE .STK-MED ONE Stop: 12/14/19 16:06 Fentanyl (Sublimaze) Confirm Administered Dose 100 mcg .ROUTE .STK-MED ONE Stop: 12/14/19 19:38 Lactated Ringer's (Ringers, Lactated) 1,000 mls @ 150 mls/hr IV ASDIRECTED [facility] Last Infusion: 12/14/19 19:45 Dose: Infused Oxytocin/Sodium Chloride (Oxytocin 30 Unit/500 Ml-Ns) 30 unit in 500 mls @ 500 mls/hr IV TITRATE [facility] Last Admin: 12/14/19 21:17 Dose: 500 mls/hr Oxytocin/Sodium Chloride (Oxytocin 30 Unit/500 Ml-Ns) 30 unit in 500 mls @ 2 mls/hr IV TITRATE [facility]; Protocol Tranexamic Acid 1,000 mg/ (Sodium Chloride) 110 mls @ 660 mls/hr IV ONETIME PRN PRN Reason: Bleeding Ropivacaine (Naropin 0.2%) Confirm Administered Dose 100 mls @ as directed .ROUTE .STK-MED ONE Stop: 12/14/19 16:06 Sodium Chloride (Normal Saline) Confirm Administered Dose 20 mls @ as directed .ROUTE .STK-MED ONE Stop: 12/14/19 17:02 Ibuprofen (Motrin) Confirm Administered Dose 800 mg .ROUTE .STK-MED ONE Stop: 12/14/19 21:13 Lidocaine HCl (Xylocaine 1%) 50 ml INJECT ONETIME PRN PRN Reason: Laceration repair Methylergonovine Maleate (Methergine) 0.2 mg IM ASDIRECTED PRN PRN Reason: Post Hemorrhage Misoprostol (Cytotec) 200 mcg PO ONETIME PRN PRN Reason: Post Hemorrhage Misoprostol (Cytotec) 25 mcg VAG ONETIME PRN PRN Reason: Cervical Ripening Last Admin: 12/14/19 09:15 Dose: 25 mcg Misoprostol (Cytotec) 25 mcg PO Q4H [facility] Last Admin: 12/14/19 09:15 Dose: 25 mcg Nalbuphine HCl (Nubain) 10 mg IVPUSH Q1H PRN PRN Reason: Pain (severe 7-10) Ondansetron HCl (Zofran) 4 mg IVPUSH Q4H PRN PRN Reason: Nausea/Vomiting Ropivacaine (Naropin 0.2%) Confirm Administered Dose 20 ml .ROUTE .[facility] ONE Stop: 12/14/19 16:06 Sodium Chloride (Saline Flush) 10 ml FLUSH ASDIRECTED PRN PRN Reason: Keep Vein Open Sodium Chloride (Saline Flush) 2.5 ml FLUSH ASDIRECTED PRN PRN Reason: Keep Vein Open Sodium Chloride (Normal Saline) 10 ml IV ASDIRECTED PRN PRN Reason: IV Use Sterile Water (Sterile Water For Irrigation) 1,000 ml IRR ASDIRECTED PRN PRN Reason: delivery Terbutaline Sulfate (Brethine) 0.25 mg SUBCUT ASDIRECTED PRN PRN Reason: Tacysystole - Exam General: Reports: Alert, Oriented HEENT: Reports: Pupils Equal, Pupils Reactive Neck: Reports: Supple Lungs: Reports: Clear to Auscultation, Normal Respiratory Effort Cardiovascular: Reports: Regular Rate, Regular Rhythm GI/Abdominal Exam: Normal Bowel Sounds, Soft, Non-Tender, No Organomegaly, No Distention (Female) Exam: Normal External Exam, Vaginal Bleeding (Small lochia rubra, no clots.) Rectal (Female) Exam: Deferred Back Exam: Reports: Normal Inspection, Full Range of Motion Extremities: Normal Inspection, Normal Range of Motion, Non-Tender, Normal Capillary Refill, Pedal Edema (Non-pitting BLE) Skin: Reports: Warm, Dry, Intact Wound/Incisions: Reports: Healing Well Neurological: Reports: No New Focal Deficit Psy/Mental Status: Reports: Alert, Normal Affect, Normal Mood
[2019-12-16 11:44] VITALS: BP 119/68; PULSE 68
== END 2019-12-16 10:30 | disposition home or self-care (01) | DRG 560 ==
LOC: MW.OB 08:20 → OBSVTOIN 20:08 → MW.OB 12-15 01:00
PROVIDERS: ADMIT Obstetrics & Gynecology; ATTEND Obstetrics & Gynecology
PROC: 10E0XZZ Delivery of Products of Conception, External Approach (ICD-10-PCS; principal; 2019-12-14)
PROC: 10907ZC Drainage of Amniotic Fluid, Therapeutic from Products of Conception, Via Natural or Artificial Opening (ICD-10-PCS; 2019-12-14)
PROC: 3E033VJ Introduction of Other Hormone into Peripheral Vein, Percutaneous Approach (ICD-10-PCS; 2019-12-14)
PROC: 3E0R3BZ Introduction of Anesthetic Agent into Spinal Canal, Percutaneous Approach (ICD-10-PCS; 2019-12-14)
PROC: 00HU33Z Insertion of Infusion Device into Spinal Canal, Percutaneous Approach (ICD-10-PCS; 2019-12-14)
DX: O30.043 Twin pregnancy, dichorionic/diamniotic, third trimester (principal); Z3A.37 37 weeks gestation of pregnancy; Z37.2 Twins, both liveborn
CPT/HCPCS: 01967; 36415; 51702; 59025; 59409; 85014; 85018; 85027; 86592; 86593; 86850; 86900; 86901; A9270-GY; J2590; J7120

== ENCOUNTER 2022-01-13 01:45 | Inpatient (IN) | payer OTHER ==
[2022-01-13] MEDS ORDERED: Sodium Chloride 0.9% 10 ML Syringe FLUSH PRN (02:27)
[2022-01-13] MEDS ORDERED: Water For Irrigation,Sterile 1,000 ML Container IRR PRN (02:27)
[2022-01-13] MEDS ORDERED: Tranexamic Acid 1,000 MG in Sodium Chloride 0.9% 100 ML IV PRN (02:27)
[2022-01-13] MEDS ORDERED: Carboprost Tromethamine 250 MCG/1 ML Amp IM PRN (02:27)
[2022-01-13] MEDS ORDERED: Butorphanol 1 MG/ML SDV IVPUSH PRN (02:27)
[2022-01-13] MEDS ORDERED: Sodium Chloride 0.9% 20 ML SDV IV PRN (02:27)
[2022-01-13] MEDS ORDERED: Methylergonovine 0.2 MG/1 ML Amp IM PRN (02:27)
[2022-01-13] MEDS ORDERED: Sodium Chloride 0.9% 2.5 ML Syringe FLUSH PRN (02:27)
[2022-01-13] MEDS ORDERED: Lidocaine 1% 50 ML MDV INJECT PRN (02:27)
[2022-01-13] MEDS ORDERED: Misoprostol 200 MCG Tab PO PRN (02:27)
[2022-01-13] MEDS: Lactated Ringers 1,000 ML IV SCH ×3 (02:30→05:27)
[2022-01-13] MEDS ORDERED: Oxytocin/0.9 % Sodium Chloride 30 UNIT/500 ML BAG IV SCH (02:30)
[2022-01-13] MEDS ORDERED: Ampicillin 2 GM in Sodium Chloride 0.9% 100 ML IV ONE (02:35)
[2022-01-13] MEDS ORDERED: Ampicillin 2 GM AdvVial IV ONE (02:39)
[2022-01-13] MEDS ORDERED: Ropivacaine in NACL,ISO-OSM/PF 400 ML ONE (03:28)
[2022-01-13] MEDS ORDERED: ePHEDrine 50 MG/ML SDV IVPUSH PRN (03:46)
[2022-01-13] MEDS ORDERED: Ropivacaine in NACL,ISO-OSM/PF 800 MG in Premix Bag 1 BAG EPIDUR SCH ×2 (04:00)
[2022-01-13] MEDS ORDERED: Ampicillin 1 GM in Sodium Chloride 0.9% 50 ML IV SCH (06:30)
[2022-01-13] MEDS ORDERED: Dexmedetomidine 200 MCG/2 ML SDV ONE (07:56)
[2022-01-13] MEDS ORDERED: Ropivacaine 0.5% 5 MG/ML 30 ML SDV ONE (07:56)
[2022-01-13] MEDS ORDERED: fentaNYL 100 MCG/2 ML SDV ONE (07:57)
[2022-01-13] MEDS ORDERED: Witch Hazel Medicated Pads 40/Jar TOP PRN (09:26)
[2022-01-13] MEDS ORDERED: Acetaminophen 500 MG Tab PO PRN ×2 (09:26)
[2022-01-13] MEDS ORDERED: Ibuprofen 400 MG Tab PO PRN (09:26)
[2022-01-13] MEDS ORDERED: Lanolin 100% Cream 7 GM Tube TOP PRN (09:26)
[2022-01-13] MEDS ORDERED: Docusate Sodium 100 MG Cap PO PRN (09:26)
[2022-01-13] MEDS ORDERED: Bisacodyl 10 MG Supp RECTAL PRN (09:26)
[2022-01-13] MEDS ORDERED: Benzocaine/Menthol 20%-0.5% Spray 78 GM Cannister TOP PRN (09:26)
[2022-01-13] MEDS: Ibuprofen 800 MG Tab PO PRN (21:41)
[2022-01-14] MEDS: Ibuprofen 800 MG Tab PO PRN ×2 (03:55→10:19)
[2022-01-14 07:19] VITALS: BP 131/80; PULSE 69
== END 2022-01-14 14:45 | disposition home or self-care (01) | DRG 807 ==
LOC: MW.OBCHECK 01:45 → MW.OB 01:47 → MW.OBCHECK 02:33 → OBSVTOIN 09:12 → MW.OB 13:38
PROVIDERS: ADMIT Obstetrics & Gynecology Obstetrics; ATTEND Obstetrics & Gynecology Obstetrics
PROC: 10E0XZZ Delivery of Products of Conception, External Approach (ICD-10-PCS; principal; 2022-01-13)
PROC: 3E0R3BZ Introduction of Anesthetic Agent into Spinal Canal, Percutaneous Approach (ICD-10-PCS; 2022-01-13)
PROC: 00HU33Z Insertion of Infusion Device into Spinal Canal, Percutaneous Approach (ICD-10-PCS; 2022-01-13)
DX: O48.0 Post-term pregnancy (principal); Z37.0 Single live birth; Z3A.40 40 weeks gestation of pregnancy; O99.824 Streptococcus B carrier state complicating childbirth; Z20.822 Contact with and (suspected) exposure to COVID-19
CPT/HCPCS: 36415; 51702; 59025; 59409; 85014; 85018; 85027; 86592; 86850; 86900; 86901; A9270-GY; J0290; J2590; J2795; J3010; J7120; U0002